=== PATIENT | female | born 1965 | race Caucasian/White ===

== ENCOUNTER 2019-05-14 16:48 | Emergency (ER) | payer MEDICAID, OTHER ==
[~2019-05-14] VITALS: Ht 152.4 cm; Wt 68.0 kg
[2019-05-14 16:52] VITALS: BP 149/92
--- NOTE | 2019-05-14 17:14 | NUR ---
53F C/O DIZZY SINCE THIS MORNING, VOMITTED TWO TIMES. PT GAVE PT SOME PEDIALYTE. STATES SHE MAY NOT BE DRINKING ENOUGH WATER. NO INCITING EVENTS. DENIES VISION CHANGES, HEADACHE. NO PAIN. STATES "ROOM IS SPINNING". AOX4 HX: NONE TX: VITAMIN D2, FISH OIL
[2019-05-14] MEDS ORDERED: NACL 0.9% 1,000 ML IV ONE (17:20)
[2019-05-14] MEDS ORDERED: MECLIZINE 25 MG TAB PO ONE (18:00)
[2019-05-14 18:26] LABS: BASOPHILS % (AUTO) 0.4 % (0.0-2.0); EOSINOPHILS % (AUTO) 0.3 % (0.0-4.0); HEMATOCRIT 47.9 % (36-48); HEMOGLOBIN 16.1 g/dL (12.0-16.0); LYMPHOCYTES # (AUTO) 1.3 K/uL (2.5-16.5); LYMPHOCYTES % (AUTO) 17.2 % (20.5-51.1); MEAN CORPUSCULAR HEMOGLOBIN 29 pg (27-31); MEAN CORPUSCULAR HGB CONC 34 g/dL (33-37); MEAN CORPUSCULAR VOLUME 86.8 fL (80-94); MONOCYTES # (AUTO) 0.4 K/uL (0.8-1.0); MONOCYTES % (AUTO) 4.6 % (1.7-9.3); NEUTROPHILS # (AUTO) 5.9 K/uL (1.8-7.7); NEUTROPHILS % (AUTO) 77.5 % (42.2-75.2); PLATELET COUNT (AUTO) 163 K/uL (140-450); RED BLOOD CELL COUNT(AUTO) 5.52 MIL/uL (4.20-5.40); RED CELL DISTRIBUTION WIDTH 13.8 % (11.6-13.7); WHITE BLOOD COUNT (AUTO) 7.6 K/uL (4.8-10.8)
[2019-05-14 18:40] LABS: ANION GAP 17.6 (8-16); CARBON DIOXIDE 23.4 mmol/L (21-32); CREATININE 0.8 mg/dL (0.6-1.3)
[2019-05-14 18:45] LABS: ALBUMIN 3.9 g/dL (3.4-5.0); PROTHROMBIN TIME 9.5 secs (10.8-13.4); TOTAL BILIRUBIN 0.6 mg/dL (0.0-1.0)
[2019-05-14 19:00] VITALS: BP 138/91
== END 2019-05-14 19:00 | disposition home or self-care (01) ==
LOC: MED 16:48
DX: R42 Dizziness and giddiness (principal); R11.10 Vomiting, unspecified
CPT/HCPCS: 36415; 70450; 71045; 80053; 81025; 82948; 84484; 85025; 85610; 85730; 93005; 96360; 99284; J7030; J8597; Q0092

== ENCOUNTER 2019-06-19 08:35 | Emergency (ER) | payer SELFPAY ==
[~2019-06-19] VITALS: Ht 152.4 cm; Wt 70.8 kg
[2019-06-19 08:36] VITALS: BP 141/83
--- NOTE | 2019-06-19 08:43 | NUR ---
WHEEL CHAIR ASSISTED TO THE BATHROOM. PT GIVEN URINE CUP. ACCOMPANIED BY
--- NOTE | 2019-06-19 08:46 | NUR ---
Patient ambulated to bed 3. RN evaluating patient at bedside.
--- NOTE | 2019-06-19 09:00 | NUR ---
PT BIB C/O DIZZINESS, NAUSEA, VOMITING X TODAY. PT REPORTS DIZZINESS FEELING LIKE "THE ROOM IS SPINNING" CAUSING NAUSEA AND POOR BALANCE. PT TX WITH DROMAMINE 1 HOUR W/ SOME RELIEF. FACIAL SYMMETRY INTACT, MEMORY INTACT, SPEECH CLEAR, PERRLA, AAOX4, BL HAND 6TH [employer] STRONG/EQUAL. PT STATES SHE VOMITED X2 TODAY. LAST BM YESTERDAY--REGULAR. PT DENIES FEVER, RECENT ILNESS, EAR PAIN, ABD PAIN, CP, OR SOB. VSS. ER TO SEE PT. PMH:VERTIGO MEDRX: DENIES ALLERGY:DENIES
[2019-06-19] MEDS ORDERED: NACL 0.9% 1,000 ML IV ONE (09:20)
[2019-06-19] MEDS ORDERED: KETOROLAC 15 MG/ML VIAL IVP ONE (09:20)
[2019-06-19] MEDS ORDERED: ONDANSETRON 4 MG/2 ML VIAL IVP ONE (09:20)
[2019-06-19 09:53] LABS: APPEARANCE,URINE SL CLOUDY (CLEAR); BILIRUBIN,URINE NEGATIVE (NEGATIVE); BLOOD, URINE NEGATIVE (NEGATIVE); COLOR,URINE DARK YELLOW (YELLOW); LEUKOCYTE ESTERASE ,URINE NEGATIVE (NEGATIVE); NITRITE, URINE NEGATIVE (NEGATIVE); PH,URINE 5.5 (5.0-9.0); UGLUCOSE TRACE (NEGATIVE)
[2019-06-19 09:55] LABS: BASOPHILS % (AUTO) 0.3 % (0.0-2.0); HEMATOCRIT 49.2 % (36-48); HEMOGLOBIN 16.6 g/dL (12.0-16.0); LYMPHOCYTES % (AUTO) 7.1 % (20.5-51.1); MEAN CORPUSCULAR HEMOGLOBIN 29 pg (27-31); MEAN CORPUSCULAR HGB CONC 34 g/dL (33-37); MEAN CORPUSCULAR VOLUME 86.7 fL (80-94); MONOCYTES # (AUTO) 0.7 K/uL (0.8-1.0); MONOCYTES % (AUTO) 5.1 % (1.7-9.3); NEUTROPHILS # (AUTO) 12.2 K/uL (1.8-7.7); NEUTROPHILS % (AUTO) 87.5 % (42.2-75.2); PLATELET COUNT (AUTO) 172 K/uL (140-450); RED BLOOD CELL COUNT(AUTO) 5.67 MIL/uL (4.20-5.40); RED CELL DISTRIBUTION WIDTH 14.1 % (11.6-13.7)
--- NOTE | 2019-06-19 10:12 | NUR ---
PT LAYING IN BED, VSS, DENIES PAIN OR NAUSEA AT THIS TIME. PT STILL REPORTS DIZZINESS. REPOSITIONED PT IN [place], PT REPORTS SHE FEELS LESS DIZZY SITTING UP.
[2019-06-19 10:13] LABS: RBC,URINE 0-5 /HPF (0-5); WBC,URINE 0-5 /HPF (0-5)
[2019-06-19 10:14] LABS: URINE AMORPHOUS URATE 1+ /HPF (None Seen)
[2019-06-19 10:17] LABS: ANION GAP 13.7 (8-16); CARBON DIOXIDE 26.7 mmol/L (21-32); POTASSIUM 4.4 mmol/L (3.5-5.1)
[2019-06-19 10:18] LABS: CREATININE 0.7 mg/dL (0.6-1.3)
--- NOTE | 2019-06-19 12:21 | NUR ---
PT RESTING IN BED, AT BEDSIDE, VSS, AAOX4, REPORTS THAT SHE IS FEELING BETTER, STATES STILL SOME DIZZINESS, NO PAIN AT THIS TIME, NO NAUSEA AT THIS TIME.
[2019-06-19 12:36] VITALS: BP 113/70
--- NOTE | 2019-06-19 12:36 | NUR ---
Patient discharged with v/s stable. Written and verbal after care instructions given and explained. Patient verbalized understanding. Ambulatory with steady gait. All questions addressed prior to discharge. Advised to follow up with PMD.
--- NOTE | 2019-06-20 08:25 | NUR ---
Late entry. Confirmed with RN that 1000ml 0.9NS IV completed at 1050.
== END 2019-06-19 12:36 | disposition home or self-care (01) ==
LOC: MED 08:35
DX: R11.2 Nausea with vomiting, unspecified (principal); R42 Dizziness and giddiness; R10.13 Epigastric pain; E07.9 Disorder of thyroid, unspecified
CPT/HCPCS: 36415; 80048; 81001; 84484; 85025; 96361; 96374; 96375; 99283; J1885; J2405; J7030